=== PATIENT | female | born 1975 ===

== ENCOUNTER → 2023-12-06 09:56 | Outpatient (POV) | payer MEDICARE, SELFPAY ==
--- OUTSIDE RECORDS SUMMARY | 2023-12-06 10:00 | XMS_ITS ---
Author Name Unknown Address [address] [place] [address] Phone Organization [facility] , [facility] Address [address] [place] [address] Phone Care Team Providers Care Circulation Tender Name Role Phone Francisco Bales MD Unavailable [phone] Tone Santana Unavailable [phone] Reason for Referral Date Encounter Description Provider Reason for Referral 11/30/23 Non Physician Specified Truman Sparks MD Referral To Physician Problems Includes: Active, inactive, and resolved Problems All Visits Onset Date Resolved Date Provider Condition S tatus Left Ankle Joint Pain 11/30/2023 Truman Sparks MD Active Plan of Treatment Referrals To Diagnosis Consult for Pain Management Pain in left ankle and joints of left foot Instructions to patient Lose weight Last Documented On 4 8:54AM ; [facility] Assessments Includes: Assessments for all patient encounters Findings Encounter Date Overweight Non Physician Specified with Noa Sparks MD 11/30/2023 Instructions Includes: Instructions for all patient encounters Instructions to patient Lose weight Last Documented On 4 8:54AM ; [facility] Medical Equipment - Implanted Devices Includes: Current and historical Devices No Medical Equipment Recorded Medications Includes: Current and historical Medications Current Medications (continue as prescribed) Atorvastatin Calcium 20 MG Oral Tablet 11/28/2023 Pr ovider: Tone Santana Diagnosis: Eliquis 5 MG Oral Tablet 11/28/2023 Provider: Jorgito Santana Diagnosis: Leflunomide 20 MG Oral Tablet 11/28/2023 Provider: Tone Santana Diagnosis: Nitroglycerin 0.4 MG Sublingual Tablet Sublingual 11/13 Provider: Tone Santana Diagnosis: Slynd 4 MG Oral Tablet 11/28/2023 Provider: Tone Santana Diagnosis: Vitamin D (Ergocalciferol) 1 .25 MG (04656 UT) Oral Capsule 10/25/2023 Provider: Zoey Renner MD Diagnosis: Medications Administered Includes: Administered Medications in patient's chart No Administered Medications Recorded Vital Signs Includes: Vital Signs from 12/06/2022 through 12/06/2023 Vital Name 11/30/2023 09:03A Height (in) 67 Weight (lb) 219 Body Mass Index 34.3 Body Surface Area 2.1 Pain Level 7 Note: mbaker Last Documented: On 11/30/2023 9:03AM ; [facility] Results Includes: Results from 12/06/2022 through 12/06/2023 No Results Recorded For Specified Dates History of Present Illness History of Present Illness not supported for this document type No History of Present Illness Recorded Social History Description Last Updated Exercising regularly 11/30/2023 Procedures and Surgical History Surgical History Last Updated History of heart surgery 11/30/2023 Medical History Includes: Medical History in patient's chart Description Last Updated History of arthritis 11/30/2023 Family History Includes: Family History in patient's chart Description Last Updated Family history of osteoporosis Review of Systems Review of Systems not supported for this document type No Review of Systems Recorded Mental Status Description Anxiety Functional Status No Functional Status Recorded Physical Exam Physical Exam not supported for this document type No Physical Exam Recorded Encounters Includes: Encounters from 12/06/2022 through 12/06/2023 Encounter Provider Location Date Check-In Time Check-Out Time Diagnosis Non Physician [facility]ified [facility] 11/30/19 8:48AM 10:38AM Overweight Insurance Includes: Active Insurance Policies Plan Name Member ID Group # Subscriber Relationship Effect aníbal Dates 1 - [facility]/[employer] RE [id number] Sarah Garner Clinical Notes Includes: Signed Clinical Notes starting from 10/27/2022 * Progress note Date Encounter Last Documented by 11/30/2023 Non Physician Specified Last doc umented on 11/30/2023; 4:06 PM, Truman Sparks MD; [facility] Active Problems & Conditions - Left Ankle Joint Pain Chief Complaint The Chief Complaint is: Left ankle pain. Referred Here Referred by [facility]. History of Present Illness Sarah Curtis is a 48 year old female. - Allergy list reviewed - Problem list reviewed - Medication list reviewed - Previous history of new onset pain Injury is not work related or an automotive accident - Pain is constant (100% of the time) - Patient pain level from 1-10: 7 - No previous treatment. Current Medication - Atorvastatin Calcium 20 MG Oral Tablet 90 days, 0 refills - Eliquis 5 MG Oral Tablet 30 days, 0 refills - Leflunomide 20 MG Oral Tablet 30 days, 0 refills - Nitroglycerin 0.4 MG Sublingual Tablet Sublingual 30 days, 0 refills - Slynd 4 MG Oral Tablet 28 days, 0 refills - Vitamin D (Ergocalciferol) 1.25 MG (93769 UT) Oral Capsule 84 days, 0 refills Past Medical/Surgical History Reported: History of Heart Attack. Diagnoses: Heart disease. Osteoporosis. Arthritis. Depression Surgical: - Heart surgery - History of Gallbladder Social History Not a current smoker. Current diet: Recent change in diet. Caffeine use: No caffeine use. Tobacco use: Tobacco non-user. Alcohol: Not using alcohol. Drug Use: Not using drugs. Habits: Exercising regularly. Family History Osteoporosis Rheumatoid arthritis Review Of Systems Systemic: Feeling tired. No recent weight loss and no recent weight gain. Head: Headache and sinus pain. Eyes: No vision problems and no Cataracts. Glasses/Contacts. No Glaucoma. Otolaryngeal: No hearing loss. Tinnitus. Cardiovascular: No chest pain or discomfort, no palpitations, and no Hypertension. High Cholesterol. Pulmonary: No daytime asthma symptoms. Chronic cough. No wheezing. Gastrointestinal: No heartburn and no abdominal pain. No Indigestion, no Acid Reflux, no Peptic Ulcer, no GI Stomach Bleed, and no Ulcers. Endocrine: No hot flashes. Muscle weakness. No Diabetes, no Hypothyroid, and no Hyperthyroid. Hematologic: No easy bleeding. A tendency for easy bruising. No Anemia. Musculoskeletal: Arthritis, lower back pain, soft tissue swelling, and pain localized to one or more joints. Neurological: Dizziness, convulsions, and numbness. Psychological: Anxiety, emotional lability, depression, and insomnia. Not crying for no reason. Skin: No dry skin. No Ulcers and no Scars. Rash: Allergic and Immunologic: No complaint of seasonal allergic reaction. Physical Findings - Vitals taken 11/30/2023 09:03 am anushka Height 67 in Weight 219 lbs Body Mass Index 34.3 kg/m2 Body Surface Area 2.1 m2 Pain Level 7 Previous Tests Imaging: X-Ray: An X-ray was performed. Therapy - Clinical consultation report. - Referral to physician. Counseling/Education - Lose weight Assessment - Overweight Plan StartCited - Pain in left ankle and joints of left foot Referral/Pain Management: Consult for Pain Management EndCited Notes This dictation was done with voice recognition software and may contain errors and omissions. 48-year-old female seen for left ankle and foot pain Patient has a 6+ month history of left ankle and foot pain. She denies any event or injury which initiated her symptoms. She complains of significant tenderness to palpation about the medial and lateral ankle and posterior/plantar portion of the calcaneus. She has tried physical therapy which made her symptoms worse. She has tried a boot for 2 months and this provided no benefit and often times hurt worse. She states that a brace/Odin wrap also makes her symptoms worse. She has a history of multiple strokes in the last stroke was approximately 2-1/2 years ago. She has recently tried a compound admixture of gabapentin and other medications which helps slightly. She has had an EMG/nerve conduction study from [facility] which showed no significant abnormalities. Patient takes Eliquis which precludes stronger NSAIDs. Physical examination of the left lower extremity shows no skin lesions or abrasions. She is very tender to palpation about the medial and lateral aspects of the ankle along with the posterior and anterior aspects. Medial hurts worse than lateral and posterior hurts worse than anterior. No instabilities or subluxations are noted. Ankle range of motion is dorsiflexion of 30 and plantar flexion of 45. This is decreased compared to the right ankle which shows 45 dorsiflexion and 60 plantar flexion. X-rays of the tib-fib from [facility] on 04/06/2023 show no significant abnormalities. x-ray images were directly reviewed and interpreted. MRI was performed at [facility] on 05/10/2023 and showed subcutaneous edema around the ankle medial greater than lateral. MRI images were directly reviewed and interpreted. No ligament or tendon tears. Another MRI was performed on 10/09/2023 which showed posterior tibial tenosynovitis in addition Assessment: Left ankle swelling, tendinitis, and nerve hypersensitivity, chronic, exacerbated/worsening Plan: Pain management referral for consideration of peripheral nerve block/ablation Practice Management Use of tobacco assessment performed Review of medications documented. Care Team - Tone Santana
--- OUTSIDE RECORDS SUMMARY | 2023-12-06 10:00 | XMS_ITS ---
Care Plan - [facility] Created on: December 06, 2023 Sarah Curtis : 1975 Sex: Female Author Name Unknown Address [address] [place] [address] Phone Organization [facility] Address [address] [place] [address] Phone Care Team Providers Care Stuntman Name Role Phone Francisco Bales MD Unavailable [phone] Tone Santana Unavailable [phone]
--- OUTSIDE RECORDS SUMMARY | 2023-12-06 10:01 | XMS_ITS | Clinical Summary ---
Author Name Unknown Address [address] [place] [address] Phone Organization [facility] , [facility] Address [address] [place] [address] Phone Care Team Providers Care Soldering Machine Setter Name Role Phone Francisco Bales MD Unavailable [phone] Tone Santana Unavailable [phone] Reason for Referral Date Encounter Description Provider Reason for Referral 11/30/23 Non Physician Specified Truman Sparks MD Referral To Physician Reason for Visit and Chief Complaint The Chief Complaint is: left ankle pain Problems Includes: Problems addressed during this encounter and other active Problems Current Visit Onset Date Resolved Date Provider Lc haynes Status Left Ankle Joint Pain 11/30/2023 Truman Sparks MD Active Plan of Treatment Referrals To Diagnosis Consult for Pain Management Pain in left ankle and joints of left foot Instructions to patient Lose weight Last Documented On 4 8:54AM ; [facility] Assessments Includes: Assessments from this encounter Findings - Overweight - Last Documented On 11/30/2023 4:06PM ; [facility] Instructions Includes: Instructions from this encounter Instructions to patient Lose weight Last Documented On 4 8:54AM ; [facility] Medical Equipment - Implanted Devices Includes: Current Devices No Medical Equipment Recorded Medications Includes: Medications discussed during this encounter and other current Medications Current Medications (continue as prescribed) Atorvastatin Calcium 20 MG Oral Tablet 11/28/2023 Pr ovider: Tone Santana Diagnosis: Eliquis 5 MG Oral Tablet 11/28/2023 Provider: Jorgito Santana Diagnosis: Leflunomide 20 MG Oral Tablet 11/28/2023 Provider: Tone Santana Diagnosis: Nitroglycerin 0.4 MG Sublingual Tablet Sublingual 11/13 Provider: Tone Santana Diagnosis: Slynd 4 MG Oral Tablet 11/28/2023 Provider: Tone Duggan Max Diagnosis: Vitamin D (Ergocalciferol) 1 .25 MG (14475 UT) Oral Capsule 10/25/2023 Provider: Zoey Renner MD Diagnosis: Medications Administered Includes: Administered Medications from this encounter No Administered Medications Recorded Vital Signs Includes: Vital Signs from this encounter Vital Name 11/30/2023 09:03A Height (in) 67 Weight (lb) 219 Body Mass Index 34.3 Body Surface Area 2.1 Pain Level 7 Note: anushka Last Documented: On 11/30/2023 9:03AM ; [facility] Results Includes: Results discussed during this encounter No Results Recorded For Specified Dates History of Present Illness Includes: History of Present Illness from this encounter CHICHO Curtis is a 48 year old female. - Allergy list reviewed - Problem list reviewed - Medication list reviewed - Previous history of new onset pain Injury is not work related or an automotive accident - Pain is constant (100% of the time) - Patient pain level from 1-10: 7 - No previous treatment. Social History Description Last Updated Exercising regularly 11/30/2023 Procedures and Surgical History Includes: Procedures from this encounter Procedures Code Diagnosis Performing Provider Service L ocation Service Date use of tobacco assessment performed 1000F Surgical History Last Updated History of heart surgery 11/30/2023 Medical History Includes: Medical History addressed during this encounter Description Last Updated History of arthritis 11/30/2023 Family History Includes: Family History addressed during this encounter Description Last Updated Family history of osteoporosis Review of Systems Includes: Review of Systems from this encounter Systemic: Feeling tired. No recent weight loss [...] Immunologic: No complaint of seasonal allergic reaction. Mental Status Includes: Mental Status from this encounter Description Anxiety Functional Status Includes: Functional Status from this encounter No Functional Status Recorded Physical Exam Includes: Physical Exam from this encounter Encounters Encounter Provider Location Date Check-In Time Check-Out Time Diagnosis Non Physician [facility]ified [facility] 11/30/19 24 8:48AM 10:38AM Overweight Insurance Includes: Active Insurance Policies Plan Name Member ID Group # Subscriber Relationship Effect aníbal Dates 1 - [facility]/[employer] [id number] Sarah Curtis Self Clinical Notes Includes: Clinical Notes from this encounter * Progress note Date Encounter Last Documented by 11/30/2023 Non Physician Specified Last doc umented on 11/30/2023; 4:06 PM, Truman Sparks MD; [facility] Active Problems & Conditions - Left Ankle Joint Pain Chief Complaint The Chief Complaint is: Left ankle pain. Referred Here Referred by [facility]. History of Present Illness [...] refills - Vitamin D (Ergocalciferol) 1.25 MG (39236 UT) Oral Capsule 84 days, 0 refills [...] has had an EMG/nerve conduction study from [facility] which showed no significant abnormalities. Patient [...] plantar flexion. X-rays of the tib-fib from [facility] on 04/06/2023 show no significant abnormalities. x-ray images were directly reviewed and interpreted. MRI was performed at [facility] on 05/10/2023 and showed subcutaneous edema [...]
--- NOTE | 2023-12-06 10:29 | A.OFFVIS_ITS ---
HPI Data of Consult Patient: new to practice Consult date: 12/06/23 Requesting Physician: Shania Calle APRN Consult Narrative Reason for consult: Left ankle pain History of present illness: Ms. Curtis is a 48 year old female who presents today as a new patient. She is a referral from [facility]. Today she rates her pain a 7 out of 10. Patient states her pain is all in her left ankle and describes it as an aching, throbbing, sensation with even numbness and tingling. Patient states that walking aggravates her symptoms. She also states that she can even touch on the inside of her foot due to the pain.Patient states this has been going on for at least 6 months. Patient denies any specific trauma or injury that initially led to her symptoms. She states the pain does interfere with her ability perform activities of daily living such as cooking and cleaning. She also states that frequently this joint does swell. Patient has had EMG testing with no acute findings. Patient does have a significant health history including multiple strokes and aphasia. Patient was going to [facility] however denies any previous injections or surgery. Patient states that she is more holistic and tries not to take oral medications. Patient has been prescribed a prescription cream however states she has not noticed any additional improvement from this. Patient has tried physical therapy however this made her symptoms worse. patient also did try bracing and an Odin wrap however this additionally caused worsening pain. Patient is on Eliquis and cannot take NSAIDs. Patient does state that she has had low back issues in the past however denies any imaging. Patient is not on any scheduled medications. Her Aj has been reviewed and is appropriate. CC: Shania Calle APRN [facility] Disclaimer: The information contained in this section may have been updated after the patient was seen, as this information can be updated by other users. Social History Smoking Status: Unknown if ever smoked alcohol intake: never current occupational status: other Travel in the last 8 weeks: None Review of Systems Review of Systems Review of systems:: pertinent systems reviewed and negative unless documented below Review of systems (narrative): Review of Systems: General: No recent weight changes, no fever, no sleep disturbances Respiratory: No cough, no shortness of air, no recurring pulmonary infections Cardiovascular/peripheral vascular: No chest pain, no palpitations, no edema, no shortness of breath Gastrointestinal: No new onset incontinence, normal bowel movements reported Genitourinary: No new onset incontinence Musculoskeletal: Left ankle pain Psychiatric: [Normal mood/affect] Neurological: [Denies weakness in extremities], [denies balance issues] Meds Home Medications and Allergies New Prescriptions to Start Prescriptions: Objective Narrative: Physical Exam: General: Alert and oriented x3, no acute distress, pleasant and cooperative Lungs: Respirations even and unlabored, symmetrical chest expansion Eyes: PERRL Musculoskeletal: Flexion and extension of left ankle somewhat guarded secondary to pain, [antalgic gait noted] Neurological: Speech clear, no gross sensory deficit Additional findings Additional findings: MR lower extremity joint only without IV contrast left side 10/09/2023 Findings: Bone/joint: No edema, contusion or pathological marrow replacement. Mild degenerative disease of the hindfoot and midfoot no osteochondral lesions at the talar dome. Ligaments: Lateral ligaments are intact. Medial ligaments are intact. Tendons: Achilles tendon is normal in size and signal intensity. Tiny amount of fluid in the retrocalcaneal bursa and there is mild edema surrounding the Achilles tendon. Medial tendons are intact. Posterior tibialis tendon is normal in size and signal intensity. There is a tiny amount of fluid in the posterior tibialis tendon sheath. There is a subtle abnormal T2 signal intensity surrounding the peroneal tendons. No peroneal tendon tear. Other soft tissues there is no significant joint effusion. Plantar fascia is unremarkable. There is soft tissue edema worse medially Assessment and Plan *Assessment and plan (1) Left ankle pain: Status: Acute Qualifiers: Chronicity: chronic Qualified Code(s): M25.572 - Pain in left ankle and joints of left foot; G89.29 - Other chronic pain Category: Medical Code(s): M25.572 - Pain in left ankle and joints of left foot (2) Lumbar radiculopathy: Status: Acute Category: Medical Code(s): M54.16 - Radiculopathy, lumbar region Plan Patient continues to experience significant pain in her left ankle with limited range of motion. Patient did have extreme point tenderness with palpation along the medial aspect of her left foot during today's exam. I have discussed with the patient due to her history of low back pain in the past that it may be beneficial to order updated imaging to see if any of her symptoms may be related to her lumbar spine. Patient's MRI of her foot and ankle and EMG testing showed no acute findings to explain her severe pain. Patient is agreeable to the updated imaging. I will order x-ray and MRI without contrast of her lumbar spine. I will also order the patient a compounded cream. I did discuss with the patient that she may benefit from a peripheral nerve block for her ankle however the patient states that [facility] stated that they did not think that this would benefit her so she is not interested in this option at this time. patient will return to clinic in 1 month for reevaluation of symptoms and plan of care. Patient has been instructed to contact the clinic with any concerns before the next appointment. Dr. Aiken has reviewed this note and agrees with this plan of care. This note was dictated using voice recognition software and make contain errors or omissions.
[2023-12-06 12:13] VITALS: BP 138/89; PULSE 88; RESP 18; O2SAT 97; BMI 34.6
== END ==
LOC: SC.PAIN 09:58
PROVIDERS: Visit Provider Nurse Practitioner Family
DX: M25.572 Pain in left ankle and joints of left foot (principal); G89.29 Other chronic pain; M54.16 Radiculopathy, lumbar region
CPT/HCPCS: 99202; G0463

== ENCOUNTER 2024-01-04 10:49 | Outpatient (POV) | payer MEDICARE, SELFPAY ==
--- OUTSIDE RECORDS SUMMARY | 2024-01-04 10:53 | XMS_ITS ---
Care Plan - [facility], [facility] Created on: January 04, 2024 Sarah Curtis : 1975 Sex: Female Author Name Unknown Address [address] [place] [address] Phone Organization [facility] Address [address] [place] [address] Phone Care Team Providers Care Crop Nutrition Scientist Name Role Phone Francisco Bales MD Unavailable [phone] Tone Santana Unavailable [phone]
--- OUTSIDE RECORDS SUMMARY | 2024-01-04 10:53 | XMS_ITS ---
Author Name Unknown Address [address] [place] [address] Phone Organization [facility] , [facility] Address [address] [place] [address] Phone Care Team Providers Care Medical Affairs Specialist Name Role Phone Francisco Bales MD Unavailable [phone] Tone Santana Unavailable [phone] Reason for Referral Date Encounter Description Provider [...] weight Last Documented On 4 8:54AM ; [facility] Assessments Includes: Assessments for all patient encounters Findings Encounter Date Overweight Non Physician Specified with Noa Sparks MD 11/30/2023 Instructions Includes: Instructions for all patient encounters Instructions to patient Lose weight Last Documented On 4 8:54AM ; [facility] Medical Equipment - Implanted Devices Includes: [...] Diagnosis: Vitamin D (Ergocalciferol) 1 .25 MG (50946 UT) Oral Capsule 10/25/2023 Provider: Zoey Renner MD Diagnosis: Medications Administered Includes: Administered Medications in patient's chart No Administered Medications Recorded Vital Signs Includes: Vital Signs from 01/04/2023 through 01/04/2024 Vital Name 11/30/2023 09:03A Height (in) 67 Weight (lb) 219 Body Mass Index 34.3 Body Surface Area 2.1 Pain Level 7 Note: mbaker Last Documented: On 11/30/2023 9:03AM ; [facility] Results Includes: Results from 01/04/2023 through 01/04/2024 No Results Recorded For Specified Dates History [...] Physical Exam Recorded Encounters Includes: Encounters from 01/04/2023 through 01/04/2024 Encounter Provider Location Date Check-In Time Check-Out Time Diagnosis Non Physician [facility]ified [facility] 11/30/19 24 8:48AM 10:38AM Overweight Insurance Includes: Active Insurance Policies Plan Name Member ID Group # Subscriber Relationship Effect aníbal Dates 1 - [facility]/[employer] RE [id number] Sarah Garner Clinical Notes Includes: Signed Clinical Notes starting from 10/27/2022 * Progress note Date Encounter Last Documented by 11/30/2023 Non Physician Specified Last doc umented on 11/30/2023; 4:06 PM, Truman Sparks MD; [facility], [facility] Active Problems & Conditions - Left Ankle Joint Pain Chief Complaint The Chief Complaint is: Left ankle pain. Referred Here Referred by [facility]. History of Present Illness Sarah [...] refills - Vitamin D (Ergocalciferol) 1.25 MG (35085 UT) Oral Capsule 84 days, 0 refills [...] has had an EMG/nerve conduction study from [facility] which showed no significant abnormalities. Patient takes [...] plantar flexion. X-rays of the tib-fib from [facility] on 04/06/2023 show no significant abnormalities. x-ray images were directly reviewed and interpreted. MRI was performed at [facility] on 05/10/2023 and showed subcutaneous edema around [...]
--- OUTSIDE RECORDS SUMMARY | 2024-01-04 10:53 | XMS_ITS | Clinical Summary ---
Author Name Unknown Address [address] [place] [address] Phone Organization [facility] , [facility] Address [address] [place] [address] Phone Care Team Providers Care Wafer Fab Operator Name Role Phone Francisco Bales MD Unavailable [phone] Tone Santana Unavailable [phone] Reason for Referral Date Encounter Description Provider [...] weight Last Documented On 4 8:54AM ; [facility] Assessments Includes: Assessments from this encounter Findings - Overweight - Last Documented On 11/30/2023 4:06PM ; [facility], [facility] Instructions Includes: Instructions from this encounter Instructions to patient Lose weight Last Documented On 4 8:54AM ; [facility] Medical Equipment - Implanted Devices Includes: Current [...] Diagnosis: Vitamin D (Ergocalciferol) 1 .25 MG (93832 UT) Oral Capsule 10/25/2023 Provider: Zoey Renner MD Diagnosis: Medications Administered Includes: Administered Medications from this encounter No Administered Medications Recorded Vital Signs Includes: Vital Signs from this encounter Vital Name 11/30/2023 09:03A Height (in) 67 Weight (lb) 219 Body Mass Index 34.3 Body Surface Area 2.1 Pain Level 7 Note: anushka Last Documented: On 11/30/2023 9:03AM ; [facility], [facility] Results Includes: Results discussed during this encounter [...] Check-Out Time Diagnosis Non Physician [facility]ified [facility] 11/30/19 24 8:48AM 10:38AM Overweight Insurance Includes: Active Insurance Policies Plan Name Member ID Group # Subscriber Relationship Effect aníbal Dates 1 - [facility]/[employer] [id number] Sarah Curtis Self Clinical Notes Includes: Clinical Notes from this encounter * Progress note Date Encounter Last Documented by 11/30/2023 Non Physician Specified Last doc umented on 11/30/2023; 4:06 PM, Truman Sparks MD; [facility], [facility] Active Problems & Conditions - Left Ankle Joint Pain Chief Complaint The Chief Complaint is: Left ankle pain. Referred Here Referred by [facility]. History of Present Illness [...] refills - Vitamin D (Ergocalciferol) 1.25 MG (47606 UT) Oral Capsule 84 days, 0 refills [...] has had an EMG/nerve conduction study from [facility] which showed no significant abnormalities. Patient [...] plantar flexion. X-rays of the tib-fib from [facility] on 04/06/2023 show no significant abnormalities. x-ray images were directly reviewed and interpreted. MRI was performed at [facility] on 05/10/2023 and showed subcutaneous edema [...]
--- NOTE | 2024-01-04 11:29 | EXP.PAIN.SOA ---
[facility] Pain Management SOAP Note Subjective:: Patient is a pleasant 48-year-old female who presents today for follow-up. We are currently treating the patient for left foot pain, lumbar radiculopathy. Today she rates her pain a 5 out of 10. Patient denies any new trauma or injury or any change to location or type of pain she experiences. At our last visit the patient was scheduled for a MRI of her lumbar spine however she did not proceed forward with this option at that time due to having a heart monitor on. Patient does state that she just finished this therapy yesterday and is wanting to proceed forward with the imaging. We did also order her compounded cream at the last visit however she states that it was not covered by her insurance and she did not proceed forward with it. Patient does state that she got a compounded cream from [employer] and that she thinks it has the same ingredients but is not sure. She states this cream did not really provide much improvement. At our last visit we did also discuss the peripheral nerve block for her left ankle however she was not interested in that option at that time and stated that a gentleman at [facility] thought it would not help. Her Aj has been reviewed and is appropriate. Review of Systems: General: No recent weight changes, no fever, no sleep disturbances Respiratory: No cough, no shortness of air, no recurring pulmonary infections Cardiovascular/peripheral vascular: No chest pain, no palpitations, no edema, no shortness of breath Gastrointestinal: No new onset incontinence, normal bowel movements reported Genitourinary: No new onset incontinence Musculoskeletal: Left foot/ankle pain Psychiatric: [Normal mood/affect] Neurological: [Denies weakness in extremities], [denies balance issues] Objective:: Physical Exam: General: Alert and oriented x3, no acute distress, pleasant and cooperative Lungs: Respirations even and unlabored, symmetrical chest expansion Eyes: PERRL Musculoskeletal: Flexion and extension of left ankle somewhat guarded secondary to pain, [antalgic gait noted] Neurological: Speech clear, no gross sensory deficit Assessment:: Left foot/ankle pain, lumbar radiculopathy Plan:: We will proceed forward with the lumbar MRI. I have reviewed back with the patient regarding the peripheral nerve block for her left ankle and stated that the referral from [facility] was actually recommending this injection however the patient still would like to wait. Patient will return to clinic in 1 month following her lumbar MRI imaging for reevaluation of symptoms and plan of care. Patient has been instructed to contact the clinic with any concerns before the next appointment. Dr. Aiken has reviewed this note and agrees with this plan of care. This note was dictated using voice recognition software and make contain errors or omissions. [facility] Disclaimer: The information contained in this section may have been updated after the patient was seen, as this information can be updated by other users. Medical History (Updated 12/06/23 @ 12:16 by Karlene Nash RN) Arthritis CAD (coronary artery disease) CVA (cerebral vascular accident) Depression Gallbladder disease Heart attack HLD (hyperlipidemia) Osteoporosis Surgical History (Updated 12/06/23 @ 12:16 by Karlene Nash RN) H/O heart surgery Family History (Updated 12/06/23 @ 12:16 by Karlene Nash RN) Other Osteoporosis Rheumatoid arthritis Social History (Updated 12/06/23 @ 12:17 by Karlene Nash RN) Smoking Status: Never smoker alcohol intake: never current occupational status: other Travel in the last 8 weeks: None
[2024-01-04 12:36] VITALS: BP 137/92; PULSE 65; RESP 18; O2SAT 100; BMI 34.6
== END 2024-01-04 23:59 ==
LOC: SC.PAIN 10:50
PROVIDERS: PCP Registered Nurse Critical Care Medicine; Visit Provider Nurse Practitioner Family
DX: M25.572 Pain in left ankle and joints of left foot (principal); M54.16 Radiculopathy, lumbar region
CPT/HCPCS: 99212; G0463